=== PATIENT | male | born 1960 | race African-American/Black ===

== ENCOUNTER 2018-07-06 21:15 | Emergency (ER) | payer MEDICAID ==
[~2018-07-06] VITALS: Ht 170.2 cm; Wt 56.7 kg
[2018-07-06 21:24] VITALS: BP 120/65
--- NOTE | 2018-07-06 22:46 | NUR ---
CALLED IN [facility], NO ANSWER.
--- NOTE | 2018-07-06 23:04 | NUR ---
CALLED IN WAITING ROOM, NO ANSWER.
--- NOTE | 2018-07-06 23:30 | NUR ---
CALLED IN WAITING ROOM, NO ANSWER.
== END 2018-07-06 23:33 | disposition left against medical advice (07) ==
LOC: ER 21:15
DX: Z53.21 Procedure and treatment not carried out due to patient leaving prior to being seen by health care provider (principal); R10.30 Lower abdominal pain, unspecified
CPT/HCPCS: A4606; Z7610

== ENCOUNTER 2018-07-07 01:12 | Emergency (ER) | payer MEDICAID ==
[~2018-07-07] VITALS: Ht 170.2 cm; Wt 56.7 kg
[2018-07-07 01:16] VITALS: BP 129/73
[2018-07-07 02:03] LABS: APPEARANCE,URINE SL CLOUDY (CLEAR); BILIRUBIN,URINE 1+ (NEGATIVE); BLOOD, URINE TRACE-INTA Ery/uL (NEGATIVE); COLOR,URINE DARK YELLO (YELLOW); KETONES,URINE TRACE (NEGATIVE); LEUKOCYTE ESTERASE ,URINE 1+ (NEGATIVE); NITRITE, URINE NEGATIVE (NEGATIVE); PROTEIN,URINE 1+ mg/dl (NEGATIVE); UGLUCOSE NEGATIVE (NEGATIVE)
[2018-07-07 02:08] LABS: BACTERIA,URINE Few /HPF (None Seen); SQUAMOUS EPITHELIAL CELL,UR Rare /HPF (None Seen); WBC,URINE 51-80 /HPF (0-3)
[2018-07-07] MEDS ORDERED: CEFTRIAXONE 500 MG VIAL ONE (02:26)
[2018-07-07] MEDS ORDERED: AZITHROMYCIN 250 MG TABLET ONE (02:27)
[2018-07-07] MEDS ORDERED: LIDOCAINE 1% INJ 50 ML MDV IJ ONE (02:27)
[2018-07-07] MEDS ORDERED: PENICILLIN G BENZATHINE 2.4 MMU/4 ML ML IM ONE ×2 (02:27→02:30)
[2018-07-07] MEDS ORDERED: METRONIDAZOLE 500 MG TABLET ONE (02:27)
[2018-07-07] MEDS ORDERED: CEFTRIAXONE 500 MG VIAL IM ONE (02:30)
[2018-07-07] MEDS ORDERED: AZITHROMYCIN 250 MG TABLET PO ONE (02:30)
[2018-07-07] MEDS ORDERED: METRONIDAZOLE 500 MG TABLET PO ONE (02:30)
== END 2018-07-07 02:50 | disposition home or self-care (01) ==
LOC: ER 01:12
DX: N39.0 Urinary tract infection, site not specified (principal); A64 Unspecified sexually transmitted disease; F17.200 Nicotine dependence, unspecified, uncomplicated; Z59.0 Homelessness
CPT/HCPCS: 36415; 81001; 86592; 87086; 87491; 87591; 99283; A4606; J3490; Z7610; 81000-TC; J0558; J0696

== ENCOUNTER 2019-05-12 14:01 | Emergency (ER) | payer MEDICAID ==
[~2019-05-12] VITALS: Ht 170.2 cm; Wt 54.4 kg
[2019-05-12 14:09] VITALS: BP 125/67
[2019-05-12] MEDS ORDERED: LIDOCAINE MPF 1%-EPI 1:200,000 30 ML VIAL IJ ONE (14:28)
[2019-05-12] MEDS ORDERED: TDAP [DIPH/PERTUSSIS/TET] 0.5 ML VIAL IM ONE ×2 (14:30→15:16)
[2019-05-12] MEDS ORDERED: LIDOCAINE 1%-EPI 1:100,000 20 ML VIAL TP ONE (14:30)
== END 2019-05-12 15:29 | disposition home or self-care (01) ==
LOC: ER 14:02
DX: L02.413 Cutaneous abscess of right upper limb (principal); F17.200 Nicotine dependence, unspecified, uncomplicated; Z59.0 Homelessness
CPT/HCPCS: 10060; 99283; 99406; A6403; A6407; J3490; 90715